=== PATIENT | male | born 1940 | race Caucasian/White ===

== ENCOUNTER → 2020-09-27 | Outpatient (CLI) | payer OTHER ==
[~2020-09-27] MED LIST: CARVEDILOL3.125 MG PO; CLONIDINE HCL0.1 M1 PO; CRESTOR5 MG PO; DAILY VALUE1 EACH PO; DOXAZOSIN MESYLA8 MG PO; ELIQUIS5 MG PO; FELODIPINE ER10 MG PO; GLIPIZIDE5 MG PO; LEVOTHYROXINE50 MC1 PO; ST. JOSEPH ASPI81 M1 PO; TADALAFIL5 MG PO; TELMISARTAN80 MG PO; VITAMIN D250 MCG PO
== END ==
LOC: HEART 5 10:57
DX: I48.91 Unspecified atrial fibrillation (principal); I08.3 Combined rheumatic disorders of mitral, aortic and tricuspid valves; R93.1 Abnormal findings on diagnostic imaging of heart and coronary circulation
CPT/HCPCS: 93306

== ENCOUNTER → 2020-10-24 | Day surgery (SDC) | payer OTHER | END | disposition home or self-care (01) | LOC: OR 05:51 | DX: D12.2 Benign neoplasm of ascending colon (principal); D12.0 Benign neoplasm of cecum; K57.90 Diverticulosis of intestine, part unspecified, without perforation or abscess without bleeding; K64.1 Second degree hemorrhoids; N40.0 Benign prostatic hyperplasia without lower urinary tract symptoms; K21.00 Gastro-esophageal reflux disease with esophagitis, without bleeding; E78.5 Hyperlipidemia, unspecified; E03.9 Hypothyroidism, unspecified; I12.9 Hypertensive chronic kidney disease with stage 1 through stage 4 chronic kidney disease, or unspecified chronic kidney disease; E11.22 Type 2 diabetes mellitus with diabetic chronic kidney disease; N18.30 Chronic kidney disease, stage 3 unspecified; Z79.01 Long term (current) use of anticoagulants; Z79.82 Long term (current) use of aspirin; Z79.84 Long term (current) use of oral hypoglycemic drugs; Z79.890 Hormone replacement therapy; Z79.899 Other long term (current) drug therapy; Z86.73 Personal history of transient ischemic attack (TIA), and cerebral infarction without residual deficits | CPT/HCPCS: 82962; J2704; J7120 ==